=== PATIENT | male | born 1970 | race Caucasian/White ===

== ENCOUNTER 2023-10-05 08:12 | Day surgery (SDC) | payer BC ==
[2023-09-29 16:07] LABS: BILIRUBIN,URINE NEGATIVE (Neg); CLARITY,URINE CLEAR (Clear); COLOR,URINE YELLOW (Yellow); GLUCOSE, URINE NEGATIVE (Neg); KETONES,URINE NEGATIVE (Neg); LEUKOCYTE ESTERASE ,URINE NEGATIVE (Neg); NITRITES, URINE NEGATIVE (Neg); OCCULT BLOOD,URINE TRACE-INTACT (Neg); PROTEIN,URINE NEGATIVE (Neg); UROBILINOGEN,URINE 0.2 E.U/dL (0.2-1.0)
[2023-09-29 16:17] LABS: BASOPHILS # (AUTO) 0.1 X10'3 (0-0.2); BASOPHILS % (AUTO) 0.8 % (0-1); EOSINOPHILS # (AUTO) 0.4 X10'3 (0-0.9); HEMATOCRIT 45.9 % (42.0-52.0); HEMOGLOBIN 15.4 g/dl (14.0-17.9); LYMPHOCYTES # (AUTO) 2.3 X10'3 (1.1-4.8); LYMPHOCYTES % (AUTO) 30.5 % (21-51); MEAN CORPUSCULAR HEMOGLOBIN 28.9 PG (27.0-31.0); MEAN CORPUSCULAR HGB CONC 33.4 g/dL (33.0-36.5); MEAN CORPUSCULAR VOLUME 86.5 FL (78-98); MEAN PLATELET VOLUME 9.6 FL (7.4-10.4); MONOCYTES # (AUTO) 0.7 X10'3 (0-0.9); MONOCYTES % (AUTO) 9.2 % (2-12); NEUTROPHILS # (AUTO) 4.2 X10'3 (1.8-7.7); NEUTROPHILS % (AUTO) 54.5 % (42-75); PLATELET COUNT 222 X10'3 (140-440); RED BLOOD COUNT 5.31 X10'6 (4.70-6.10); RED CELL DISTRIBUTION WIDTH 12.9 % (11.5-14.5); WHITE BLOOD COUNT 7.6 X10'3 (4.5-11.0)
[2023-09-29 16:32] LABS: UA COLLECTION TYPE CLN CATCH MIDSTREAM
[2023-09-29 16:38] LABS: ALANINE AMINOTRANSFERASE 24 U/L (12-78); ALBUMIN 3.9 G/DL (3.4-5.0); ALKALINE PHOSPHATASE 59 IU/L (46-116); ANION GAP 8 (8-16); ASPARTATE AMINO TRANSFERASE 18 U/L (10-37); BILIRUBIN,TOTAL 0.3 MG/DL (0.1-1.0); BLOOD UREA NITROGEN 15 MG/DL (7-18); BUN/CREATININE RATIO 14.9 (10.0-20.0); CALCIUM 8.8 MG/DL (8.5-10.1); CHLORIDE 105 MMOL/L (99-107); CREATININE 1.01 MG/DL (0.60-1.10); GLUCOSE 98 MG/DL (70-104); POTASSIUM 3.8 MMOL/L (3.5-5.1); SODIUM 142 MMOL/L (135-145); TOTAL CARBON DIOXIDE 29.2 MMOL/L (24-32); TOTAL PROTEIN 7.7 G/DL (6.4-8.2); eGFR 78 ML/MIN
[2023-09-29 16:41] LABS: BACTERIA,URINE FEW /HPF (Neg); RBC,URINE 0-2 /HPF (0-2); SQUAMOUS EPITHELIAL CELL,UR FEW /LPF (FEW)
[2023-09-29 16:42] LABS: WBC,URINE 0-4 /HPF (0-4)
[2023-10-05] VITALS (15 sets, daily range): BP systolic 108–145; BP diastolic 52–95; PULSE 68–97; RESP 12–20; TEMP 98.5; O2SAT 94–98
[~2023-10-05] VITALS: Ht 177.8 cm; Wt 87.6 kg
[2023-10-05] MEDS: cefazolin 2gm/D5W 100mL 100 ML IV ONE (05:30)
[2023-10-05] MEDS ORDERED: NO MEDS (08:32)
[2023-10-05] MEDS ORDERED: ringers solution, lacted 1,000 ML IV SCH (08:40)
[2023-10-05] MEDS ORDERED: labetalol 20mg/4ml (5mg/ml) syringe IV PRN (08:40)
[2023-10-05] MEDS ORDERED: fentaNYL/PF 50MCG/1 ML 2ML syringe IV PRN ×2 (08:40)
[2023-10-05] MEDS ORDERED: hydrALAZINE 20mg/ml inj. IV PRN (08:40)
[2023-10-05] MEDS ORDERED: morphine 2 MG/ML inj. syringe IV PRN (08:40)
[2023-10-05] MEDS: famotidine 20mg tablet PO ONE (08:46)
[2023-10-05] MEDS: ringers solution, lacted 1,000 ML IV SCH (08:46)
[2023-10-05] MEDS ORDERED: sevoflurane 250ml liquid IH ONE (12:47)
[2023-10-05] MEDS ORDERED: ondansetron/PF 4mg/2ml inj ONE (12:47)
[2023-10-05] MEDS ORDERED: dexamethasone sod phosphate 10mg/ml inj ONE (12:47)
[2023-10-05] MEDS ORDERED: midazolam 1 mg/ML 2ml injection ONE (13:00)
[2023-10-05] MEDS ORDERED: fentaNYL/PF 50MCG/1 ML 2ML syringe ONE (13:00)
[2023-10-05] MEDS ORDERED: glycopyrrolate 0.2mg/ml inj ONE (13:06)
[2023-10-05] MEDS ORDERED: LIDOcaine 2% (20mg/ml) 5ml vial ONE (13:06)
[2023-10-05] MEDS ORDERED: neostigmine methylsulfate 1 MG/ML 10ml vial ONE (13:06)
[2023-10-05] MEDS ORDERED: propofol inj 20 ML IV ONE (13:06)
[2023-10-05] MEDS ORDERED: rocuronium 10mg/ml inj IV ONE (13:06)
[2023-10-05] MEDS ORDERED: acetaminophen 1,000mg/100ml IV 100 ML IV ONE (13:12)
[2023-10-05] MEDS: BUPIVAcaine/PF 2.5 mg/ml (0.25%) 30ml vial ONE (13:18)
[2023-10-05] MEDS ORDERED: hydrALAZINE 20mg/ml inj. IV ONE (14:33)
[2023-10-05] MEDS: morphine 4 MG/ML inj SYRINge IV PRN (15:03)
[2023-10-05] MEDS: ondansetron/PF 4mg/2ml inj IV PRN (15:49)
[2023-10-05] MEDS: HYDROcodone/acetaminophen 10/325mg tab PO ONE (16:02)
[2023-10-05] MEDS: scopolamine 1MG/72H patch 1 PATCH PATCH.TD.3 TD SCH (17:26)
== END 2023-10-05 18:08 | disposition home or self-care (01) ==
LOC: PAS 08:12
PROVIDERS: ATTEND Surgery
DX: K40.90 Unilateral inguinal hernia, without obstruction or gangrene, not specified as recurrent (principal); D17.6 Benign lipomatous neoplasm of spermatic cord; Z79.899 Other long term (current) drug therapy; Z98.890 Other specified postprocedural states; Z72.89 Other problems related to lifestyle
CPT/HCPCS: 36415; 49650; 80053; 81001; 82948; 85025; 93005; C1781; J0131; J0360; J0690; J1100; J2250; J2270; J2405; J2704; J2710; J3010; J3490; J7030; J7120; S2900; Z7506; Z7508; Z7512; A4215; A4618; C1758